=== PATIENT | male | born 1980 | race Two or more races ===

== ENCOUNTER 2017-02-20 14:25 | Emergency (ER) | payer MEDICAID ==
[~2017-02-20] VITALS: Ht 165.1 cm; Wt 60.0 kg
[2017-02-20 18:50] VITALS: BP 130/79
== END 2017-02-20 18:51 | disposition home or self-care (01) ==
LOC: ER 16:00
DX: R53.1 Weakness (principal)
CPT/HCPCS: 93005; 99283